=== PATIENT | male | born 1930 | race African-American/Black ===

== ENCOUNTER 2019-05-13 10:21 | Emergency (ER) | payer MEDICARE ==
[~2019-05-13] VITALS: Ht 170.2 cm; Wt 69.0 kg
[2019-05-13 11:59] LABS: BASOPHILS % 0.8 % (0.0-2.0); CHLORIDE 110 mEq/L (98-107); EOSINOPHILS % 4.4 % (0.0-5.0); HEMATOCRIT. 40.8 % (42.0-52.0); HEMOGLOBIN. 13.7 g/dL (14.0-18.0); LYMPHOCYTES % 32.2 % (20.0-50.0); MEAN CORPUSCULAR VOLUME 77.1 fL (80.0-94.0); MONOCYTES % 8.9 % (2.0-8.0); NEUTROPHILS % 53.7 % (40.0-76.0); PLATELET 146 x1000/uL (130-400); RED BLOOD CELL COUNT 5.29 mill/uL (4.7-6.1); RED CELL DISTRIBUTION WIDTH 15.4 % (11.6-14.6)
[2019-05-13 12:04] LABS: INR 1.1; PROTHROMBIN TIME 10.9 sec (9.6-11.0)
[2019-05-13] MEDS ORDERED: ASPIRIN 325MG EC TABLET PO ONE (12:30)
[2019-05-13] MEDS ORDERED: POTASSIUM CHLORIDE 20MEQ TABLET SR PO ONE (12:30)
[2019-05-13 12:33] LABS: CLARITY URINE CLEAR (CLEAR); COLOR URINE YELLOW (YELLOW); KETONES URINE NEGATIVE (NEGATIVE); LEUKOCYTE ESTERASE URINE NEGATIVE (NEGATIVE); NITRITE URINE NEGATIVE (NEGATIVE); OCCULT BLOOD URINE NEGATIVE (NEGATIVE); PROTEIN URINE NEGATIVE (NEGATIVE); SPECIFIC GRAVITY URINE 1.011 (1.005-1.030); UROBILINOGEN URINE 0.2 E.U./dL (0.2-1.0)
[2019-05-13 16:44] VITALS: BP 138/75
== END 2019-05-13 17:47 | disposition left against medical advice (07) ==
LOC: ER 10:21 → CANBEDREQ 17:49
DX: R42 Dizziness and giddiness (principal); E87.6 Hypokalemia; I10 Essential (primary) hypertension; E78.00 Pure hypercholesterolemia, unspecified
CPT/HCPCS: 36415; 71045; 83605; 83880; 84484; 93005; 99284

== ENCOUNTER 2019-05-14 07:21 | Emergency (ER) | payer MEDICARE ==
[~2019-05-14] VITALS: Ht 170.2 cm; Wt 69.0 kg
[2019-05-14 09:52] LABS: BASOPHILS % 0.6 % (0.0-2.0); EOSINOPHILS % 2.6 % (0.0-5.0); HEMOGLOBIN. 14.4 g/dL (14.0-18.0); LYMPHOCYTES % 22.8 % (20.0-50.0); MEAN CORPUSCULAR HEMOGLOBIN 25.8 pg (28.0-32.0); MEAN CORPUSCULAR VOLUME 77.2 fL (80.0-94.0); MEAN PLATELET VOLUME 9.1 fl (7.4-10.4); PLATELET 159 x1000/uL (130-400); RED BLOOD CELL COUNT 5.56 mill/uL (4.7-6.1); RED CELL DISTRIBUTION WIDTH 15.7 % (11.6-14.6)
[2019-05-14 09:58] LABS: CHLORIDE 110 mEq/L (98-107)
[2019-05-14 11:35] VITALS: BP 139/81
== END 2019-05-14 11:36 | disposition home or self-care (01) ==
LOC: ER 07:27
DX: R42 Dizziness and giddiness (principal); I10 Essential (primary) hypertension
CPT/HCPCS: 36415; 84484; 93005; 99284